=== PATIENT | male | born 1970 | race Hispanic/Latino ===

== ENCOUNTER 2016-06-16 18:47 | Emergency (ER) | payer SELFPAY ==
[2016-06-16 19:00] VITALS: BP 127/79; PULSE 72; RESP 18; TEMP 98.1; O2SAT 96
--- NOTE | 2016-06-16 19:47 | C.PDOC ---
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 Patient has no other complaints at this time. Time Seen by Provider: 06/16/16 19:18 Chief Complaint (Nursing): Abnormal Skin Integrity History Per: Patient History/Exam Limitations: no limitations Onset/Duration Of Symptoms: Mins Current Symptoms Are (Timing): Still Present Severity: Mild Past Medical History Reviewed: Historical Data, Nursing Documentation, Vital Signs Vital Signs: Last Vital Signs Temp 98.1 F 06/16/16 18:54 Pulse 72 06/16/16 18:54 Resp 18 06/16/16 18:54 BP 127/79 06/16/16 18:54 Pulse Ox 96 06/16/16 20:03 - Medical History PMH: Seizures (last seizure at age 14) - [facility] Procedures LINEAR REP LID LACER (07/02/14) TETANUS TOXOID ADMINIST (06/14/14) Family History: States: Unknown Family Hx - Social History Hx Tobacco Use: Yes Hx Alcohol Use: Yes Hx Substance Use: No - Immunization History Hx Tetanus Toxoid Vaccination: No (unsure) Hx Influenza Vaccination: No Hx Pneumococcal Vaccination: No Review Of Systems Except As Marked, All Systems Reviewed And Found Negative. Constitutional: Negative for: Fever, Chills Skin: Positive for: Other (+Laceration to right hand) Neurological: Negative for: Weakness, Numbness Physical Exam - Physical Exam Appears: Non-toxic, No Acute Distress Skin: Warm, Dry, Other (+2.0 cm superficial laceration to the dorsal aspect of the right hand, proximal to the base of the 1st MCP.) Head: Atraumatic, Normacephalic Eye(s): bilateral: Normal Inspection Oral Mucosa: Moist Extremity: Normal ROM, Capillary Refill (< 2 seconds), No Deformity Pulses: Left Radial: Normal, Right Radial: Normal Neurological/Psych: Oriented x3, Normal Speech, Normal Cognition, Normal Motor, Normal Sensation ED Course And Treatment O2 Sat by Pulse Oximetry: 96 (Room air) Pulse Ox Interpretation: Normal Progress Note: Patient given Tetanus vaccine. Laceration - Laceration Repair Right Hand Laceration Wound Length (In cm): 2.0 Description Of Wound: Linear Wound Cleansed With: Sterile Saline Wound Examination: Irrigated With Saline Wound Closure: Skin Glue Disposition Counseled Patient/Family Regarding: Diagnosis, Need For Followup, Rx Given - Disposition Disposition: HOME/ ROUTINE Disposition Time: 19:58 Condition: GOOD Additional Instructions: Please follow up with PMD Take meds as directed Return to ER if worse Instructions: Skin Adhesive Care (ED), Steristrips (ED) Print Language: GUINEAN - Clinical Impression Clinical Impression: Laceration of hand - PA / CAMP BOSS / Resident Statement MD/DO has reviewed & agrees with the documentation as recorded. - Scribe Statement The provider has reviewed the documentation as recorded by the Scribe Roel Trevino. All medical record entries made by the Scribe were at my direction and personally dictated by me. I have reviewed the chart and agree that the record accurately reflects my personal performance of the history, physical exam, medical decision making, and the department course for this patient. I have also personally directed, reviewed, and agree with the discharge instructions and disposition.
== END 2016-06-16 20:15 | disposition home or self-care (01) ==
LOC: C.ER 18:47
DX: S61.411A Laceration without foreign body of right hand, initial encounter (principal); W26.0XXA Contact with knife, initial encounter

== ENCOUNTER 2017-01-07 15:52 | Emergency (ER) | payer MEDICAID, OTHER ==
[2017-01-07 16:11] VITALS: BMI 24.3
[2017-01-07 16:12] VITALS: BP 147/72; PULSE 70; RESP 20; TEMP 97.9; O2SAT 95
--- NOTE | 2017-01-07 16:13 | C.PDOC ---
History Of Present Illness 46 year old male is brought to the ED by EMS for evaluation after he was found publicly intoxicated prior to arrival. Patient complains of a few abrasions to his knuckles. Otherwise, he denies suicidal/homicidal ideation and has no other physical complaints at this time. Time Seen by Provider: 01/07/17 16:07 Chief Complaint (Nursing): Substance Abuse History Per: Patient, EMS History/Exam Limitations: intoxication Current Symptoms Are (Timing): Still Present Suicide/Self Injury Attempted (Context): None Associated Symptoms: denies: Suicidal Thoughts, Suicidal Plan Involuntary Hold By: None Recent travel outside of the [place]: No Additional History Per: Patient, EMS Past Medical History Reviewed: Historical Data, Nursing Documentation, Vital Signs Vital Signs: Last Vital Signs Temp 97.9 F 01/07/17 16:11 Pulse 70 01/07/17 16:11 Resp 20 01/07/17 16:11 BP 147/72 01/07/17 16:11 Pulse Ox 95 01/07/17 22:10 - Medical History PMH: Seizures (last seizure at age 14) Surgical History: No Surg Hx - [facility] Procedures LINEAR REP LID LACER (07/02/14) TETANUS TOXOID ADMINIST (06/14/14) Family History: States: Unknown Family Hx - Social History Hx Tobacco Use: Yes Hx Alcohol Use: Yes Hx Substance Use: No - Immunization History Hx Tetanus Toxoid Vaccination: No (unsure) Hx Influenza Vaccination: No Hx Pneumococcal Vaccination: No Review Of Systems Psych: Positive for: Other (EtOH intoxication ). Negative for: Suicidal ideation Physical Exam - Physical Exam Appears: Non-toxic, No Acute Distress, Other (tall, thin, foul-smelling, visibly intoxicated ) Skin: Normal Color, Warm, Dry, Other (superficial abrasions to dorsal aspect of bilateral hands ) Head: Atraumatic, Normacephalic Eye(s): bilateral: Normal Inspection Oral Mucosa: Moist, Other (alcohol on breath) Neck: Supple Chest: Symmetrical, No Deformity, No Tenderness Cardiovascular: Rhythm Regular, No Murmur Respiratory: Normal Breath Sounds, No Rales, No Rhonchi, No Wheezing Gastrointestinal/Abdominal: Soft, No Tenderness, No Guarding, No Rebound Extremity: Normal ROM, Capillary Refill (less than 2 seconds ) Neurological/Psych: Other (arousable to touch and verbal stimuli ) Gait: Unsteady ED Course And Treatment O2 Sat by Pulse Oximetry: 95 (on RA) Pulse Ox Interpretation: Normal Medical Decision Making Medical Decision Making: alcohol use, refused Longterm placement stable gait, stable for d/c Disposition Doctor Will See Patient In The: Office Counseled Patient/Family Regarding: Studies Performed, Diagnosis - Disposition Referrals: Alcoholics Anonymous [Outside] [facility] [Outside] [facility] [Outside] Disposition: HOME/ ROUTINE Disposition Time: 16:14 Condition: GOOD Additional Instructions: seek nightly Longterm placement and Alcohol Abuse programs as needed Instructions: Abrasion (ED) Forms: [employer] ([place]) - Clinical Impression Clinical Impression: Abrasion, Alcohol abuse - Scribe Statement The provider has reviewed the documentation as recorded by the Scribe (Michelle Oropeza) Provider Attestation: All medical record entries made by the Scribe were at my direction and personally dictated by me. I have reviewed the chart and agree that the record accurately reflects my personal performance of the history, physical exam, medical decision making, and the department course for this patient. I have also personally directed, reviewed, and agree with the discharge instructions and disposition.
== END 2017-01-07 16:37 | disposition home or self-care (01) ==
LOC: C.ER 15:52
DX: F10.129 Alcohol abuse with intoxication, unspecified (principal); Y90.9 Presence of alcohol in blood, level not specified; S60.512A Abrasion of left hand, initial encounter; S60.511A Abrasion of right hand, initial encounter; X58.XXXA Exposure to other specified factors, initial encounter